=== PATIENT | female | born 1965 | race Caucasian/White ===

== ENCOUNTER 2020-03-02 22:13 | Emergency (ER) | payer MEDICAID, SELFPAY ==
[2020-03-02 22:29] VITALS: BP 164/99; PULSE 91; RESP 16; TEMP 36.5; O2SAT 98
--- NOTE | 2020-03-03 01:23 | ED_ITS ---
HPI - Skin/Abscess/Foreign Bdy General: Chief complaint: Skin/Abscess/Foreign Body Stated complaint: abcess on bottom of foot/ pusy Time Seen by Provider: 03/03/20 01:23 History of Present Illness: HPI narrative: Patient is a 54-year-old female who comes to the ED with lesion on left foot. Patient says a month ago she stepped on something sharp in her yard with her left foot. She says she had some erythema and tenderness to her left foot. Patient says that lasted about 2 weeks and then it all was completely healed and she was having no pain in the left foot. She says last night she started developing tenderness, erythema and warmth in the same area where she injured her foot a month ago. She currently rates the pain in her left foot 6 out of 10. Patient is up-to-date on tetanus shot and says she has no history of MRSA or staph infection. Associated symptoms: Deny chills, fever(s), nausea or vomiting Review of Systems Const: Denies: fever(s), chills or fatigue Eyes: Denies: change in vision or eye discomfort ENMT: Denies: throat pain, odynophagia, nasal discharge or nasal congestion Card: Denies: chest pain, palpitations, edema, swelling of feet/ankles, dyspnea on exertion or orthopnea Resp: Denies: dyspnea, productive cough or non-productive cough GI: Denies: abdominal pain, nausea, vomiting, diarrhea, constipation or hematochezia : Denies: flank pain, dysuria or hematuria Musc: Reports: extremity pain (Left foot pain); Denies: neck pain, back pain or extremity swelling Skin/Breast: Reports: new lesions (Erythema and tenderness on left foot.); Denies: rash Neuro: Denies: headache(s), numbness in extremities or weakness in extremities Physical Exam Const: COMMON NORMALS: no acute distress, patient oriented x3 and alert GENERAL APPEARANCE: cooperative and comfortable HENMT: COMMON NORMALS: normocephalic HEAD & SCALP: normocephalic MOUTH: Normal oral and palatal mucosa present THROAT: posterior oropharynx normal and uvula midline Neck/C-Spine: COMMON NORMALS: supple GENERAL: Yes normal visual inspection Resp: COMMON NORMALS: normal respiratory effort, No retractions, No use of accessory muscles and clear to auscultation bilaterally AUSCULTATION: clear to auscultation bilaterally Cardio: COMMON NORMALS: regular rate, regular rhythm, S1 normal heart sound present, S2 normal heart sound present, No gallops present (Cardio), No clicks present (Cardio), No murmurs present (Cardio) and Peripheral pulses 2+ throug hout RATE: regular rate RHYTHM: regular rhythm HEART SOUNDS: S1 normal heart sound present and S2 normal heart sound present PERIPHERAL PULSES: Peripheral pulses 2+ throughout GI: COMMON NORMALS: Normal to inspection, nondistended, normoactive bowel sounds present, Soft to palpation, non-tender and no masses PALPATION: Yes Soft to palpation : COMMON NORMALS: Yes no CVA tenderness BLADDER/KIDNEY EXAM: Yes no CVA tenderness Back/Pelvis: COMMON NORMALS: no CVA tenderness Extremity: NARRATIVE EXTREMITY EXAM: Patient has erythema, tenderness and warmth on the lateral aspect of left foot. nonfluctuant and indurated appears to be cellulitis. GENERAL: Yes normal exam except as noted Neuro: COMMON NORMALS: patient oriented x3 and moves all extremities SENSORIUM/ORIENTATION: Yes alert Skin: NARRATIVE SKIN EXAM: Patient has erythema, warmth and tenderness on the lateral aspect of the left foot. No purulent drainage. Nonfluctuant and indurated. Lesion on left foot appears to be cellulitis. GENERAL SKIN EXAM: dry skin Course Vital Signs: Vital signs: Vital Signs Temperature 97.7 F 03/02/20 22:29 Pulse Rate 68 03/03/20 01:54 Respiratory Rate 18 03/03/20 01:54 Blood Pressure 164/99 03/02/20 22:29 Pulse Oximetry 98 03/03/20 01:54 MDM - Skin/Abscess/Foreign Bdy MDM Narrative: Medical decision making narrative: Patient is a 54-year-old female comes to the ED with possible skin infection on left foot. Patient says a month ago she stepped on something on the yard and it punctured her skin. Physical exam shows erythema, warmth and tenderness of the skin on the lateral aspect of the left foot. Left foot x-ray showed no acute findings or foreign body seen. Suspected cellulitis. Patient was given a dose of clindamycin while here in the ED and is discharged with a prescription for clindamycin. She was told to take ibuprofen or Tylenol for pain or fevers. Return to ED precautions given and I informed her that this could develop into an abscess and might need to be drained if he continues to get worse he will take antibiotics. Follow-up with PCP 5 to 7 days. Patient understood and agreed with plan. Imaging Data^: Xray Ortho: Attestation: I personally reviewed and interpreted this imaging study as follows: My impression: Left foot x-ray shows no acute findings or foreign body seen. Discharge Plan Discharge Patient Disposition: Home Clinical Impression: Cellulitis Qualifiers: Site of cellulitis: extremity Site of cellulitis of extremity: lower extremity Laterality: left Qualified Code(s): L03.116 - Cellulitis of left lower limb Condition: Stable Prescriptions: New clindamycin HCl 150 mg capsule 300 mg PO QID 7 Days Qty: 56 RF: 0 Discharge Orders: Discharge Order (Routine); Ordered 03/03/20 Ordered By: Manuel Rizo Referrals: Brigitte Briceño FNP [Primary Care Provider] - Discharge Diet: Regular Discharge Activity: Increase activity as tolerated Patient Instructions: Cellulitis (ED) Activity Restrictions/Additional Instructions: Follow-up with medical provider as directed in 5-7 days. Return to ED if after couple days of being on antibiotic symptoms worsen. Take medications as prescribed. Take ibuprofen or Tylenol for pain. Return to the ER or your medical provider if condition worsens. Please read and understand discharge instructions. If any questions, please ask. Coding Level of Care Code ED Associate Professor Of Economics for Reg Tate Exam Comprehensive
[2020-03-03 01:54] VITALS: PULSE 68; RESP 18; O2SAT 98
--- NOTE | 2020-03-03 01:59 | XR_ITS ---
WS: [id number] LEFT FOOT: 3 VIEW(S) TECHNIQUE: AP, oblique and lateral. HISTORY: foot injury COMPARISON: None available. No acute fracture or dislocation. Small erosion along the lateral first metatarsal head. Normal tarsal/metatarsal alignment. Mild soft tissue edema surrounding the foot. XR/XR foot LT min 3V* [id number] IMPRESSION: Soft tissue edema surrounding the foot. No foreign body or acute fracture.
[2020-03-03] MEDS: clindamycin 150 mg Capsule 300 MG PO (02:03)
[2020-03-03] MEDS: HYDROcodone-acetaminophen 7.5-325 mg Tablet 1 TAB PO (02:03)
[2020-03-03 04:14] VITALS: BP 146/88; PULSE 86; RESP 16; O2SAT 96
== END 2020-03-03 04:15 | disposition home or self-care (01) ==
PROVIDERS: Emergency Provider Physician Assistant; PCP Nurse Practitioner
DX: L03.116 Cellulitis of left lower limb (principal)
CPT/HCPCS: 12345; 73630; 99282; 99283

== ENCOUNTER → 2021-03-20 07:50 | Outpatient (BNVA) | payer MEDICAID, SELFPAY | PROVIDERS: PCP Nurse Practitioner; Visit Provider Nurse Practitioner Family | DX: I10 Essential (primary) hypertension (principal) | CPT/HCPCS: 80053; 80061; 84443 ==

== ENCOUNTER → 2021-12-27 15:20 | Outpatient (BNVA) | payer MEDICARE, MEDICAID, SELFPAY | PROVIDERS: PCP Nurse Practitioner; Visit Provider Family Medicine | DX: M54.50 Low back pain, unspecified (principal); M54.30 Sciatica, unspecified side | CPT/HCPCS: 72100 ==

== ENCOUNTER 2023-07-12 18:29 | Emergency (ER) | payer MEDICARE, MEDICAID, SELFPAY ==
[2023-07-12 18:37] VITALS: BP 177/111; PULSE 87; RESP 24; O2SAT 96
--- NOTE | 2023-07-12 18:39 | XRR_ITS ---
PROCEDURE INFORMATION: Exam: XR Chest Exam date and time: 07/12/2023 6:56 PM Age: 57 years old Clinical indication: Other: Hypertensive; Prior surgery; Surgery date: 6+ months; Surgery type: Gb; Additional info: HTN urgency TECHNIQUE: Imaging protocol: Radiologic exam of the chest. Views: 1 view. COMPARISON: No relevant prior studies available. FINDINGS: Lungs: Left upper lobe calcified granuloma. No consolidation. Pleural spaces: Unremarkable. No pleural effusion. No pneumothorax. Heart/Mediastinum: Unremarkable. No cardiomegaly. Bones/joints: Unremarkable. XR/XR chest 1V portable [id number] IMPRESSION: No acute findings.
--- NOTE | 2023-07-12 18:39 | CTR_ITS ---
PROCEDURE INFORMATION: Exam: CT Head Without Contrast Exam date and time: 07/12/2023 6:54 PM Age: 57 years old Clinical indication: Pain; Headache; Patient HX: CEBALLOS with hypertension; Additional info: Headache HTN TECHNIQUE: Imaging protocol: Computed tomography of the head without contrast. Radiation optimization: All CT scans at this facility use at least one of these dose optimization techniques: automated exposure control; mA and/or kV adjustment per patient size (includes targeted exams where dose is matched to clinical indication); or iterative reconstruction. COMPARISON: No relevant prior studies available. RADIATION DOSE METRICS: Total DLP (mGy-cm): 1048.5 FINDINGS: Brain: Mild diffuse white matter disease likely reflecting chronic microvascular ischemic changes. Cerebral ventricles: No ventriculomegaly. Paranasal sinuses: Visualized sinuses are unremarkable. No fluid levels. Mastoid air cells: Visualized mastoid air cells are well aerated. Bones/joints: Unremarkable. No acute fracture. Soft tissues: Unremarkable. CT/CT head wo con* [id number] IMPRESSION: Negative for intracranial hemorrhage or mass effect.
--- NOTE | 2023-07-12 18:40 | ECG_ITS ---
[facility] Test Date: 2023-07-12 Pat Name: Christa Rodriguez Department: Room: Gender: Female Chief Financial Officer: : 1965 Requested By: Isaac Jackson Order Number: [id number] Leighann MD: Christian Mensah M.D. Measurements Intervals [place] Rate: 83 P: 38 HI: 112 QRS: 39 QRSD: 105 T: 44 QT: 368 QTc: 433 Interpretive Statements SINUS RHYTHM WITH SHORT HI INTERVAL POSSIBLE INFERIOR MYOCARDIAL INFARCTION , PROBABLY OLD [30 ms Q WAVE IN II/aVF] No previous ECG available for comparison Electronically Signed On 07-14-2023 7:56:29 CLINICAL LABORATORY SCIENTIST by Christian Mensah M.D. [id number]
[2023-07-12 18:55] LABS: Basophils # 0.1 10^3/uL (0.0-0.1); Basophils % 0.6 %; Eosinophils # 0.1 10^3/uL (0.0-0.8); Eosinophils % 1.2 %; Hematocrit 42.1 % (36-47); Lymphocytes # 2.9 10^3/uL (0.8-4.8); Lymphocytes % 27.5 %; Mean Corpuscular HGB Conc 33.5 g/dL (30-55); Mean Corpuscular Hemoglobin 30.7 pg (27-33); Mean Corpuscular Volume 91.5 fl (85-98); Monocytes # 0.6 10^3/uL (0.2-0.9); Monocytes % 5.8 %; Neutrophils # 6.76 10^3/uL (1.8-7.7); Neutrophils % 64.6 %; Nucleated Red Blood Cells % 0 %; Platelet Count 373 10^3/cmm (157-399); Red Cell Distribution Width 12.3 % (12.1-15.1); White Blood Count 10.47 10^3/uL (3.29-11.43)
[2023-07-12] MEDS: metoprolol tartrate 25 mg Tablet PO (19:23)
[2023-07-12] MEDS: labetalol 5 mg/mL SDV 20mL 10 MG IVP (19:23)
[2023-07-12] MEDS: lisinopril 20 mg Tablet PO (19:23)
[2023-07-12 19:28] LABS: Alanine Aminotransferase 13 U/L (0-33); Albumin Level 4.1 g/dL (3.5-5.2); Alkaline Phosphatase 100 U/L (35-105); Aspartate Amino Transferase 13 U/L (0-32); Blood Urea Nitrogen 10 mg/dL (6-20); Carbon Dioxide 25 mmol/L (22-29); Chloride 108 mmol/L (98-107); Globulin 3.1 g/dL (1.3-4.6); Glomerular Filtration Rate 127.2 mL/min (90-130); Glucose 111 mg/dL (65-115); Magnesium 2.2 mg/dL (1.7-2.3); Osmolality Calculated 298 mOsm/kg (285-295); Sodium 144 mmol/L (136-145); Thyroid Stimulating Hormone 1.51 uIU/mL (0.27-4.20); Total Bilirubin 0.2 mg/dL (0.15-1.2); Total Protein 7.2 g/dL (6.6-8.7)
[2023-07-12 20:07] VITALS: BP 156/99; PULSE 78; RESP 18; O2SAT 96
[2023-07-12 20:11] LABS: Bilirubin Urine Neg (Negative); Blood Urine Neg (Negative); Glucose Urine UA Norm (Normal); Ketones Urine Negative (Negative); Nitrate Urine Negative (Negative); Protein Urine 1+ (Negative); Urine Appearance Clear (CLEAR); Urine Color Colorless (Yellow); pH Urine 7 (5-7)
[2023-07-12 20:12] LABS: Add Urine Microscopic? YES; Leukocyte Esterase Urine Negative (Negative); Urobilinogen Urine Norm (Negative)
--- NOTE | 2023-07-12 20:15 | W.ED.GENADLT ---
HPI - General Adult General: Chief complaint: General Medical Stated complaint: HTN; HEADACHE Time Seen by Provider: 07/12/23 18:32 History of Present Illness: 57-year-old female with a history of hypertension. She presents with a headache. She has significant hypertension when blood pressure was checked. She notes that she takes blood pressure medication, but has not had it in 3 weeks or so. Besides the headache, she has had some numbness and tingling to her bilateral upper and lower extremities. No focal weakness. No language problems or vision problems. Blood pressure is improved on EMS arrival to some degree after 3 sublingual nitroglycerin in succession. Associated symptoms: Reports headache(s); Deny chest pain, confusion, dyspnea, nausea, rash, palpitations or vomiting Review of Systems Const: Denies: fever(s), chills or body aches Eyes: Denies: change in vision Card: Denies: chest pain or palpitations Resp: Denies: dyspnea, productive cough, non-productive cough or wheezing GI: Denies: abdominal pain, nausea, vomiting, diarrhea or hematochezia : Denies: difficulty voiding Skin/Breast: Denies: rash Neuro: Reports: headache(s) and sensory changes; Denies: weakness in extremities, dizziness or confusion PFS ED PFSH: Medical History Bipolar disorder Hypertension Surgical History (Updated 03/20/21 @ 14:00 by Shanelle Rand NP) History of cholecystectomy History of hysterectomy Social History (Updated 03/20/21 @ 13:45 by Rachana Sarmiento LPN) Smoking and tobacco/nicotine status: current every day tobacco/nicotine user (1 ppd) cigarettes Packs smoked per day: 1 Alcohol intake: never Substance/Drug Use: never Physical Exam Const: COMMON NORMALS: no acute distress GENERAL APPEARANCE: cooperative; not ill appearing and not frail appearing HENMT: COMMON NORMALS: normocephalic, atraumatic and Normal external nose present HEAD & SCALP: normocephalic and atraumatic FACE & SINUS: normal facial exam and face symmetric NOSE: Normal external nose present Eye: COMMON NORMALS: Equal, round and reactive pupils present and EOMs intact bilaterally PUPIL: Yes Equal, round and reactive pupils present Neck/C-Spine: GENERAL: Yes trachea midline Chest: CHEST: Yes Symmetrical chest wall rise Resp: COMMON NORMALS: normal respiratory effort, No retractions, No use of accessory muscles and clear to auscultation bilaterally AUSCULTATION: clear to auscultation bilaterally Cardio: COMMON NORMALS: regular rate and regular rhythm RATE: regular rate RHYTHM: regular rhythm GI: COMMON NORMALS: Normal to inspection, nondistended, normoactive bowel sounds present Extremity: COMMON NORMALS: no pedal edema Neuro: CONSTANTIN COMA SCALE: document GCS findings Constantin coma scale eye opening: Spontaneous [place] coma scale verbal response: Orientated [place] coma scale motor response: Obey commands Constantin coma scale total score: 15 SENSORY EXAM: Yes extremities (intact) Psych: COMMON NORMALS: speech normal SPEECH: Yes normal speech Skin: COMMON NORMALS: no rashes or lesions noted GENERAL SKIN EXAM: no rashes or lesions noted Course Vital Signs: Vital signs: Vital Signs Pulse Rate 78 07/12/23 20:07 Respiratory Rate 18 07/12/23 20:07 Blood Pressure 146/86 07/12/23 20:49 Pulse Oximetry 96 07/12/23 20:07 Oxygen Delivery Me thod Room Air 07/12/23 20:[address] [facility] - General Adult Medical Decision Making Blood pressure is under much better control after medication here. She is feeling improved. She will be discharged on metoprolol to add lisinopril if after 2 to 3 days metoprolol alone is not controlling her blood pressure. Laboratories benign. Chest x-ray and head CT are negative. Close outpatient follow-up return for worsening symptoms despite treatment. Lab Data 07/12/23 18:49 07/12/23 18:49 Radiology Impressions Chest X-Ray 07/12/23 18:39 IMPRESSION: No acute findings. Head CT 07/12/23 18:39 IMPRESSION: Negative for intracranial hemorrhage or mass effect. Laboratory Results WBC 10.47 10^3/uL (3.29-11.43) 07/12/23 18:49 RBC 4.60 10^6/uL (3.85-5.65) 07/12/23 18:49 Hgb 14.10 g/dL (11.27-16.99) 07/12/23 18:49 Hct 42.1 % (36-47) 07/12/23 18:49 MCV 91.5 fl (85-98) 07/12/23 18:49 MCH 30.7 pg (27-33) 07/12/23 18:49 MCHC 33.5 g/dL (30-55) 07/12/23 18:49 RDW 12.3 % (12.1-15.1) 07/12/23 18:49 Plt Count 373 10^3/cmm (157-399) 07/12/23 18:49 MPV 9.0 fL (7.4-10.4) 07/12/23 18:49 Neut % (Auto) 64.6 % 07/12/23 18:49 Lymph % (Auto) 27.5 % 07/12/23 18:49 [place] % (Auto) 5.8 % 07/12/23 18:49 Eos % (Auto) 1.2 % 07/12/23 18:49 Baso % (Auto) 0.6 % 07/12/23 18:49 Neut # (Auto) 6.76 10^3/uL (1.8-7.7) 07/12/23 18:49 Lymph # (Auto) 2.9 10^3/uL (0.8-4.8) 07/12/23 18:49 [place] # (Auto) 0.6 10^3/uL (0.2-0.9) 07/12/23 18:49 Eos # (Auto) 0.1 10^3/uL (0.0-0.8) 07/12/23 18:49 Baso # (Auto) 0.1 10^3/uL (0.0-0.1) 07/12/23 18:49 Nucleated RBC % (auto) 0 % 07/12/23 18:49 Nucleated RBCs # 0.0 /100WBC 07/12/23 18:49 Sodium 144 mmol/L (136-145) 07/12/23 18:49 Potassium 4.0 mmol/L (3.5-5.1) 07/12/23 18:49 Chloride 108 mmol/L (98-107) H 07/12/23 18:49 Carbon Dioxide 25 mmol/L (22-29) 07/12/23 18:49 Anion Gap 15.0 (5-19) 07/12/23 18:49 BUN 10 mg/dL (6-20) 07/12/23 18:49 Creatinine 0.5 mg/dL (0.5-0.9) 07/12/23 18:49 GFR Calculation 127.2 mL/min (90-130) 07/12/23 18:49 Glucose 111 mg/dL (65-115) 07/12/23 18:49 Calculated Osmolality 298 mOsm/kg (285-295) H 07/12/23 18:49 Calcium 10.0 mg/dL (8.5-10.5) 07/12/23 18:49 Magnesium 2.2 mg/dL (1.7-2.3) 07/12/23 18:49 Total Bilirubin 0.2 mg/dL (0.15-1.2) 07/12/23 18:49 AST 13 U/L (0-32) 07/12/23 18:49 ALT 13 U/L (0-33) 07/12/23 18:49 Alkaline Phosphatase 100 U/L (35-105) 07/12/23 18:49 Total Protein 7.2 g/dL (6.6-8.7) 07/12/23 18:49 Albumin 4.1 g/dL (3.5-5.2) 07/12/23 18:49 Globulin 3.1 g/dL (1.3-4.6) 07/12/23 18:49 TSH 1.51 uIU/mL (0.27-4.20) 07/12/23 18:49 Urine Color Colorless (Yellow) 07/12/23 19:35 Urine Appearance Clear (CLEAR) 07/12/23 19:35 Urine pH 7 (5-7) 07/12/23 19:35 Ur Specific [place] 1.010 (1.005-1.030) 07/12/23 19:35 Urine Protein 1+ (Negative) H 07/12/23 19:35 Urine Glucose (UA) Norm (Normal) 07/12/23 19:35 Urine Ketones Negative (Negative) 07/12/23 19:35 Urine Blood Neg (Negative) 07/12/23 19:35 Urine Nitrate Negative (Negative) 07/12/23 19:35 Urine Bilirubin Neg (Negative) 07/12/23 19:35 Urine Urobilinogen Norm mg/dL (Negative) 07/12/23 19:35 Ur Leukocyte Esterase Negative (Negative) 07/12/23 19:35 Urine RBC 0-4 /hpf (0-2) H 07/12/23 19:35 Urine WBC 0-4 /hpf (0-5) H 07/12/23 19:35 Ur Squamous Epith Cells 0-4 /hpf (0-5) H 07/12/23 19:35 Amorphous Sediment Not Reportable 07/12/23 19:35 Urine Bacteria Trace /hpf (NONE) 07/12/23 19:35 Urine Mucus Trace /hpf 07/12/23 19:35 All radiology interpretation(s) finalized by discharge Discharge Plan Discharge Patient Disposition: Home Clinical Impression: Hypertension Condition: Stable Prescriptions: New metoprolol tartrate 25 mg tablet 25 mg PO BID Qty: 60 0RF lisinopril 10 mg tablet 10 mg PO DAILY Qty: 30 0RF No Action cyclobenzaprine 10 mg tablet 10 mg PO TID PRN (Reason: muscle spasm) Qty: 20 0RF ibuprofen 800 mg tablet 800 mg PO Q8H 5 Days Qty: 15 0RF lisinopril 20 mg tablet 20 mg PO DAILY Qty: 30 0RF Discharge Orders: Discharge ED (Routine); Ordered 07/12/23 Ordered By: Isaac Gautam Referrals: Brigitte Briceño FNP [Primary Care Provider] - Patient Instructions: Opioid Safety, Pain Management Activity Restrictions/Additional Instructions: Take your blood pressures twice daily. Start your metoprolol twice daily. If blood pressures are not controlled, less than 140/90 after 2 to 3 days, you may begin lisinopril as well. See your doctor next week. Show them a log of your blood pressure medication. Coding Level of Care Code ED Financial Services Professional for Reg Tate
[2023-07-12 20:23] LABS: Bacteria Urine TRACE /hpf; Mucus Urine TRACE /hpf; RBC Urine 0-4 /hpf (0-2); Squamous Epithelial Cell Urine 0-4 /hpf (0-5); WBC Urine 0-4 /hpf (0-5)
[2023-07-12 20:49] VITALS: BP 146/86
== END 2023-07-12 20:50 | disposition home or self-care (01) ==
PROVIDERS: Emergency Provider Emergency Medicine; PCP Nurse Practitioner
DX: I10 Essential (primary) hypertension (principal); Z72.0 Tobacco use
CPT/HCPCS: 36415; 70450; 71045; 80053; 81001; 83735; 84443; 85025; 93005; 96374; 99285; J3490

== ENCOUNTER 2023-10-08 13:14 | Outpatient (CLI) | payer MEDICARE, MEDICAID, SELFPAY ==
--- NOTE | 2023-10-08 13:20 | MM_ITS ---
WS: [id number] BILATERAL 3D TOMOSYNTHESIS DIGITAL SCREENING MAMMOGRAPHY WITH CAD CLINICAL INFORMATION: SCREENING HISTORY: Screening mammogram. No current complaints. COMPARISON: 2014 TECHNIQUE: Bilateral CC and MLO views. FINDINGS: Scattered fibroglandular densities bilaterally. Dense nodular breast tissue subareolar RIGHT breast. Recommend spot compression views and ultrasound for further evaluation. Incidental punctate calcifica tion RIGHT breast. Vascular calcifications. Unremarkable LEFT breast. IMPRESSION: MM/[place] [id number] BI-RADS: 0-Incomplete: Need additional imaging evaluation FOLLOW UP: Need Additional Imaging RIGHT breast diagnostic mammography and ultrasound in further evaluation.
== END 2023-10-08 13:15 | disposition home or self-care (01) ==
LOC: RAD 13:14
PROVIDERS: PCP Nurse Practitioner; Visit Provider Internal Medicine
DX: Z12.31 Encounter for screening mammogram for malignant neoplasm of breast (principal); R92.323 Mammographic fibroglandular density, bilateral breasts
CPT/HCPCS: 77063; 77067

== ENCOUNTER 2023-10-18 09:16 | Emergency (ER) | payer MEDICARE, MEDICAID, SELFPAY ==
[2023-10-18 09:17] VITALS: BP 127/81; PULSE 70; RESP 17; TEMP 36.7; O2SAT 100
[2023-10-18 09:23] VITALS: BP 127/81; PULSE 72; RESP 16; O2SAT 100
--- NOTE | 2023-10-18 09:24 | CTR_ITS ---
PROCEDURE INFORMATION: Exam: CT Head Without Contrast Exam date and time: 10/18/2023 9:28 AM Age: 57 years old Clinical indication: Numbness / parasthesia; Left; Additional info: Left arm numbness TECHNIQUE: Imaging protocol: Computed tomography of the head without contrast. Radiation optimization: All CT scans at this facility use at least one of these dose optimization techniques: automated exposure control; mA and/or kV adjustment per patient size (includes targeted exams where dose is matched to clinical indication); or iterative reconstruction. COMPARISON: CT head wo con* [id number] 07/12/2023 6:54 PM RADIATION DOSE METRICS: Total DLP (mGy-cm): 1070.68 FINDINGS: Brain: No acute intracranial hemorrhage or abnormal intracranial mass effect is identified. Chronic appearing small-vessel ischemic changes are present within cerebral white matter, similar to 07/12/2023. No subdural collections are seen. Incidental note of atherosclerotic calcifications involving carotid and vertebral arteries at the skull base. Cerebral ventricles: Ventricles are stable size and position compared to 07/12/2023. No midline shift. Paranasal sinuses: Visualized portions of paranasal sinuses are well aerated. Mastoid air cells: Visualized portions of mastoid sinuses are not opacified. Bones/joints: No obvious fracture or aggressive destructive lesion involving the cranium. Soft tissues: Other than as stated above, no obvious acute abnormality. CT/CT head wo con* [id number] IMPRESSION: No acute intracranial hemorrhage or mass effect.
--- NOTE | 2023-10-18 09:24 | ECG_ITS ---
[facility] Test Date: 2023-10-18 Pat Name: Christa Rodriguez Department: Room: Gender: Female Insulation Worker Apprentice: : 1965 Requested By: Chong Hall Order Number: [id number] Leighann MD: Apolinar Michael M.D. Measurements Intervals [place] Rate: 64 P: 37 MS: 152 QRS: 39 QRSD: 107 T: 60 QT: 381 QTc: 394 Interpretive Statements SINUS RHYTHM MODERATE ST DEPRESSION [0.05+ mV ST DEPRESSION] Compared to ECG 07/12/2023 18:49:59 ST (T wave) deviation now present Short MS interval no longer present Myocardial infarct finding no longer present Electronically Signed On 10-19-2023 8:10:04 CDT by Apolinar Michael M.D. [id number]
--- NOTE | 2023-10-18 09:24 | W.ED.GENADLT ---
HPI - General Adult General: Chief complaint: General Medical Stated complaint: LEFT ARM NUMBNESS Time Seen by Provider: 10/18/23 09:23 [facility] ED PFSH: Medical History Bipolar disorder Hypertension Surgical History (Updated 03/20/21 @ 14:00 by Shanelle Rand NP) History of cholecystectomy History of hysterectomy Social History (Updated 03/20/21 @ 13:45 by Rachana Sarmiento LPN) Smoking and tobacco/nicotine status: current every day tobacco/nicotine user (1 ppd) cigarettes Packs smoked per day: 1 Alcohol intake: never Substance/Drug Use: never Course Vital Signs: Vital signs: Vital Signs Temperature 98.0 F 10/18/23 09:17 Pulse Rate 70 10/18/23 09:17 Respiratory Rate 17 10/18/23 09:17 Blood Pressure 127/81 10/18/23 09:17 Pulse Oximetry 100 10/18/23 09:17 Oxygen Delivery Me thod Room Air 10/18/23 09:17 Discharge Plan Discharge Condition: Stable Prescriptions: No Action cyclobenzaprine 10 mg tablet 10 mg PO TID PRN (Reason: muscle spasm) Qty: 20 0RF ibuprofen 800 mg tablet 800 mg PO Q8H 5 Days Qty: 15 0RF lisinopril 20 mg tablet 20 mg PO DAILY Qty: 30 0RF metoprolol tartrate 25 mg tablet 25 mg PO BID Qty: 60 0RF lisinopril 10 mg tablet 10 mg PO DAILY Qty: 30 0RF Referrals: Brigitte Briceño FNP [Primary Care Provider] - Coding Level of Care Code ED Certified Nursing Attendant for Reg Ttae
--- NOTE | 2023-10-18 10:02 | XRR_ITS ---
PROCEDURE INFORMATION: Exam: XR Chest Exam date and time: 10/18/2023 10:08 AM Age: 57 years old Clinical indication: Other: Paresthesia; Patient HX: Left arm was having involuntary movement TECHNIQUE: Imaging protocol: Radiologic exam of the chest. Views: 1 view. COMPARISON: CR (CHEST, ) 07/12/2023 6:56 PM FINDINGS: Lungs: No acute infiltrate identified. Very minimal chronic basilar scarring adjacent to the diaphragm, similar to 07/12/2023 . Tiny granulomatous calcification projects over the left midlung zone. Pleural spaces: No significant pleural fluid. No pneumothorax detected. Heart/Mediastinum: Heart size is stable compared to the prior exam. No pulmonary vascular congestion. Bones/joints: Bones appear diffusely osteopenic. XR/XR chest 1V portable [id number] IMPRESSION: No acute cardiopulmonary abnormality detected on AP portable chest radiograph. .
--- NOTE | 2023-10-18 10:06 | ED_ITS ---
HPI - General Adult General: Chief complaint: General Medical Stated complaint: LEFT ARM NUMBNESS Time Seen by Provider: 10/18/23 09:23 Source: patient Mode of arrival: ambulatory Limitations: no limitations History of Present Illness: 57-year-old female who is here from [facility] states she woke up this morning and her left arm went limp but it lasted a few minutes and she is now regaining full function. States she has had this happen before states she has a pinched nerve in her shoulder she denies any pain she has no symptoms currently denies any slurred speech Associated symptoms: Deny chest pain, dyspnea, headache(s), nausea, rash or vomiting Review of Systems Const: Denies: fever(s), chills, body aches or change in appetite Eyes: Denies: blurry vision or eye discomfort ENMT: Denies: throat pain or dental pain Card: Denies: chest pain Resp: Denies: dyspnea GI: Denies: abdominal pain, nausea, vomiting or diarrhea : Denies: dysuria Musc: Denies: neck pain or back pain Skin/Breast: Denies: rash Neuro: Denies: headache(s) PFSH ED PFSH: Medical History Bipolar disorder Hypertension Surgical History History of cholecystectomy History of hysterectomy Social History (Updated 03/20/21 @ 13:45 by Rachana Sarmiento LPN) Smoking and tobacco/nicotine status: current every day tobacco/nicotine user (1 ppd) cigarettes Packs smoked per day: 1 Alcohol intake: never Substance/Drug Use: never Physical Exam Const: COMMON NORMALS: no acute distress, patient oriented x3 and healthy appearing HENMT: COMMON NORMALS: normocephalic and atraumatic HEAD & SCALP: normocephalic and atraumatic Neck/C-Spine: COMMON NORMALS: full ROM and supple Chest: COMMONS NORMALS: normal inspection of the chest Resp: COMMON NORMALS: normal respiratory effort Cardio: COMMON NORMALS: regular rate, regular rhythm and No murmurs present ( Cardio) RATE: regular rate RHYTHM: regular rhythm Extremity: COMMON NORMALS: normal to inspection and full ROM Neuro: COMMON NORMALS: patient oriented x3, moves all extremities and no focal motor deficits CRANIAL NERVES: Yes CN normal except as noted SPEECH: speech normal GAIT: Yes Normal gait present MOTOR EXAM: 5/5 motor strength present throughout Psych: COMMON NORMALS: mental status grossly normal, Normal thought process present and cooperative THOUGHT PROCESS: Normal thought process present Skin: COMMON NORMALS: no rashes or lesions noted and no wounds GENERAL SKIN EXAM: no rashes or lesions noted Course Vital Signs: Vital signs: Vital Signs Temperature 98.0 F 10/18/23 09:17 Pulse Rate 72 10/18/23 09:23 Respiratory Rate 16 10/18/23 09:23 Blood Pressure 127/81 10/18/23 09:23 Pulse Oximetry 100 10/18/23 09:23 Oxygen Delivery Me thod Room Air 10/18/23 09:23 [facility] - General Adult Medical Decision Making Patient presents with left arm weakness that lasted just a few minutes she had a history of pinched nerve she has no signs of stroke here head CT is normal patient stable for discharge follow-up PCP return if worsening. Medical Records I reviewed the patient's medical records. Lab Data Radiology Impressions Head CT 10/18/23 09:24 IMPRESSION: No acute intracranial hemorrhage or mass effect. All radiology interpretation(s) finalized by discharge EKG Data EKG 1: I personally reviewed and interpreted this EKG as follows: EKG interpretation date: 10/18/23 EKG interpretation time: 09:57 Interpretation: nsr hr [address] elevation qrs 107 qtc 390 Computer generated interpretation: Head CT 10/18/23 09:24 IMPRESSION: No acute intracranial hemorrhage or mass effect. Discharge Plan Discharge Patient Disposition: Home Clinical Impression: Left arm weakness Condition: Stable Prescriptions: No Action cyclobenzaprine 10 mg tablet 10 mg PO TID PRN (Reason: muscle spasm) Qty: 20 0RF ibuprofen 800 mg tablet 800 mg PO Q8H 5 Days Qty: 15 0RF lisinopril 20 mg tablet 20 mg PO DAILY Qty: 30 0RF metoprolol tartrate 25 mg tablet 25 mg PO BID Qty: 60 0RF lisinopril 10 mg tablet 10 mg PO DAILY Qty: 30 0RF Discharge Orders: Discharge ED (Routine); Ordered 10/18/23 Ordered By: Mikal Trujillo Referrals: Brigitte Briceño FNP [Primary Care Provider] - Discharge Diet: Advance as tolerated Discharge Activity: Resume usual activity Patient Instructions: Paresthesia (ED) Coding Level of Care Code ED Senior Clerk for Reg Tate
[2023-10-18 10:37] VITALS: BP 127/81; PULSE 72; RESP 16; TEMP 36.7; O2SAT 100
== END 2023-10-18 10:37 | disposition home or self-care (01) ==
PROVIDERS: Emergency Provider Emergency Medicine; PCP Nurse Practitioner
DX: R53.1 Weakness (principal); I10 Essential (primary) hypertension; F17.210 Nicotine dependence, cigarettes, uncomplicated
CPT/HCPCS: 70450; 71045; 93005; 99284

== ENCOUNTER 2023-10-28 10:32 | Emergency (ER) | payer MEDICARE, MEDICAID, SELFPAY ==
[2023-10-28] VITALS (9 sets, daily range): BP systolic 130–185; BP diastolic 80–110; PULSE 67–78; RESP 16–17; O2SAT 95–97
--- NOTE | 2023-10-28 10:51 | CT_ITS ---
WS: [id number] CT HEAD NONCONTRAST HISTORY: STROKE LIKE SYMPTOMS TECHNIQUE: Contiguous axial imaging performed through the brain in 2.5 mm imaging. Bone and soft tiss ue windows. Sagittal and coronal reformats reviewed. All CT scans at [facility] use at least one of these dose optimization techniques: automated exposure control; mA and/or kV adjustment per pa tient size (includes targeted exams where dose is matched to clinical indication); or iterative recon struction. DLP: 1070.68 mGy COMPARISON: 10/18/2023 No acute intracranial hemorrhage, midline shift or mass effect. Mild atrophy and small vessel ischemic disease. Similar to the prior exam. No prior infarct. Tiny lac unar infarct RIGHT caudate head and basal ganglia. Ventricles: Normal size with no hydrocephalus. No inferior displacement of the cerebellar tonsils. Paranasal sinuses: As visualized are clear. Mastoid air cells: Well pneumatized. Calvarium and scalp: Skull is intact with no soft tissue edema or swelling. CT/CT head thrombolytic [id number] IMPRESSION: 1. No acute intracranial hemorrhage or edema. 2. Mild atrophy and small vessel ischemic disease. Notified Chong Deutsch DO at 10/28/2023 10:56 AM.
--- NOTE | 2023-10-28 10:56 | ED_ITS ---
HPI - Neuro Symptoms/Deficit 2 General: Chief Complaint: Neuro Symptoms/Deficit Stated Complaint: slurred speech, blacking out Time Seen by Provider: 10/28/23 10:50 Source: patient Mode of arrival: ambulatory History of Present Illness: 57-year-old female who presents to the e mergency room with complaints of left- sided weakness. She states symptoms began about 2 hours ago while she was playing a beanbag game. During the same time she had difficulty with word pronunciation. It is kind of waxed and waned since then on arrival here she states her word enunciation seems normal initially but when I got in the room she said it felt like it was getting worse again she also mentioned that she has a pinched nerve in her neck. 10 days ago she was seen CT of the head was negative is thought to be from a pinched nerve in her neck and she was discharged home she does not routinely take any antiplatelet therapy. She does have a history of hypertension and is currently on antihypertensives. She denies any chest pain. When initially talked to her about the weakness that she said she felt weak on both the left and the right but was worse on the left than the right. Onset (ago): minute(s) Location: speech and left face Associated symptoms: Deny chest pain Review of Systems 2 Const: Denies: fever(s) or chills Card: Denies: chest pain Resp: Denies: dyspnea GI: Denies: abdominal pain : Denies: dysuria, urinary frequency or urinary urgency Musc: Denies: neck pain or back pain Skin/Breast: Denies: rash PFS ED 2 PFSH: Medical History Bipolar disorder Hypertension Surgical History History of cholecystectomy History of hysterectomy Social History (Updated 03/20/21 @ 13:45 by Rachana Sarmiento LPN) Smoking and tobacco/nicotine status: current every day tobacco/nicotine user (1 ppd) cigarettes Packs smoked per day: 1 Alcohol intake: never Substance/Drug Use: never NIH stroke score 2 NIHSS: Level Of Consciousness - 1a: 0 Level Of Consciousness Questions - 1b: Both Correct Level Of Consciousness Commands - 1c: Both Correct Best Gaze - 2: Normal Visual Blanc[place] - 3: No Visual Loss Facial Palsy - 4: N ormal Motor Arm Right - 5: No Drift Motor Arm Left - 5: Drift Motor Leg Right - 6: No Drift Motor Leg Left - 6: No Drift Limb Ataxia - 7: Absent Sensory - 8: Mild To Moderate Loss Best Language - 9: No Aphasia D ysarthia - 10: Mild/Moderate Dysarthia Extinction And Inattention - 11: 0 Score: Total Score: 3 Physical Exam 2 Const: COMMON NORMALS: no acute distress GENERAL APPEARANCE: cooperative and comfortable ORIENTATION/CONSCIOUSNESS: Yes awake, Yes oriented to person, Yes oriented to place and Yes oriented to time HENMT: COMMON NORMALS: normocephalic, atraumatic and hearing grossly normal bilaterally HEAD & SCALP: normocephalic and atraumatic Resp: COMMON NORMALS: normal respiratory effort, No retractions, No use of accessory muscles and clear to auscultation bilaterally AUSCULTATION: clear to auscultation bilaterally Cardio: COMMON NORMALS: regular rate, regular rhythm and No murmurs present (Cardio) RATE: regular rate RHYTHM: regular rhythm GI: COMMON NORMALS: Soft to palpation and No hepatosplenomegaly present A USCULTATION: Yes normoactive bowel sounds PALPATION: Yes Soft to palpation, No Tenderness to palpation present (GI), No Guarding due to palpation present (GI) and Yes No hepatosplenomegaly present Extremity: COMMON NORMALS: normal to inspection, capillary refill normal, no clubbing, cyanosis or edema, no calf tenderness and no pedal edema Neuro: SENSORIUM/ORIENTATION: Yes oriented to person, Yes oriented to place and Yes oriented to time Skin: COMMON NORMALS: no rashes or lesions noted GENERAL SKIN EXAM: no rashes or lesions noted Course 2 Vital Signs: Vital signs: Vital Signs Pulse Rate 72 10/28/23 13:52 Respiratory Rate 17 10/28/23 13:18 Blood Pressure 147/95 10/28/23 13:52 Pulse Oximetry 95 10/28/23 13:52 Oxygen Delivery Me thod Room Air 10/28/23 13:35 MDM - Neuro Symptoms/Deficit Medical Decision Making Patient's scores a NIH of 3 but is very burt on the scoring. She is reporting weakness bilaterally but when I test her she only has a very very slight arm drift she has minimal difficulty with word enunciation and reports a very slight distinction between the left and the right on the hands and feet to sharp touch. I reviewed with Dr. Wang. We both agree at this point that she is not a good candidate for intervention we will get a CTA of her head and neck. Recheck after conversation w Dr. Wang - speech issues have completely resolved per pt. discussed with her she initially scored a 3 but is improving already and we do not recommend thrombotics at this time. Lab Data 10/28/23 11:00 10/28/23 11:[address] 10/28/23 10:51 IMPRESSION: 1. No acute intracranial hemorrhage or edema. 2. Mild atrophy and small vessel ischemic disease. Notified Chong Deutsch DO at 10/28/2023 10:56 AM. Head/Neck CTA 10/28/23 10:57 IMPRESSION: No acute intracranial large vessel occlusion. IMPRESSION: Atheromatous disease noted in the proximal internal carotid arteries bilaterally. Subtotal short-segment occlusion of the proximal left internal carotid artery. 70% stenosis measured in the proximal right internal carotid artery. REFERENCES: NASCET CRITERIA. The degree of stenosis in the cervical segment of the internal carotid artery is based on NASCET criteria. Normal is no stenosis. Mild is less than 50% stenosis. Moderate is 50-69% stenosis. Severe is 70% to 99% stenosis. Total occlusion is no detectable patent lumen. Laboratory Results WBC 9.15 10^3/uL (3.29-11.43) 10/28/23 11:00 RBC 4.76 10^6/uL (3.85-5.65) 10/28/23 11:00 Hgb 14.40 g/dL (11.27-16.99) 10/28/23 11:00 Hct 43.5 % (36-47) 10/28/23 11:00 MCV 91.4 fl (85-98) 10/28/23 11:00 MCH 30.3 pg (27-33) 10/28/23 11:00 MCHC 33.1 g/dL (30-55) 10/28/23 11:00 RDW 12.2 % (12.1-15.1) 10/28/23 11:00 Plt Count 337 10^3/cmm (157-399) 10/28/23 11:00 MPV 9.2 fL (7.4-10.4) 10/28/23 11:00 Neut % (Auto) 55.0 % 10/28/23 11:00 Lymph % (Auto) 33.6 % 10/28/23 11:00 Mcleod % (Auto) 7.7 % 10/28/23 11:00 Eos % (Auto) 2.4 % 10/28/23 11:00 Baso % (Auto) 0.9 % 10/28/23 11:00 Neut # (Auto) 5.04 10^3/uL (1.8-7.7) 10/28/23 11:00 Lymph # (Auto) 3.1 10^3/uL (0.8-4.8) 10/28/23 11:00 Mcleod # (Auto) 0.7 10^3/uL (0.2-0.9) 10/28/23 11:00 Eos # (Auto) 0.2 10^3/uL (0.0-0.8) 10/28/23 11:00 Baso # (Auto) 0.1 10^3/uL (0.0-0.1) 10/28/23 11:00 Nucleated RBC % (auto) 0 % 10/28/23 11:00 Nucleated RBCs # 0.0 /100WBC 10/28/23 11:00 PT 13.50 SECONDS (12.1-14.9) 10/28/23 11:00 INR 1.00 (0.8-1.2) 10/28/23 11:00 APTT 31.6 SECONDS (23.9-36.7) 10/28/23 11:00 Sodium 137 mmol/L (136-145) 10/28/23 11:00 Potassium 4.3 mmol/L (3.5-5.1) 10/28/23 11:00 Chloride 105 mmol/L (98-107) 10/28/23 11:00 Carbon Dioxide 22 mmol/L (22-29) 10/28/23 11:00 Anion Gap 14.3 (5-19) 10/28/23 11:00 BUN 15 mg/dL (6-20) 10/28/23 11:00 Creatinine 0.8 mg/dL (0.5-0.9) 10/28/23 11:00 GFR Calculation 73.9 mL/min (90-130) L 10/28/23 11:00 Glucose 87 mg/dL (65-115) 10/28/23 11:00 POC Glucose 88 mg/dL (70-110) 10/28/23 11:03 Calculated Osmolality 284 mOsm/kg (285-295) L 10/28/23 11:00 Calcium 10.5 mg/dL (8.5-10.5) 10/28/23 11:00 Total Bilirubin 0.2 mg/dL (0.15-1.2) 10/28/23 11:00 AST 14 U/L (0-32) 10/28/23 11:00 ALT 13 U/L (0-33) 10/28/23 11:00 Alkaline Phosphatase 135 U/L (35-105) H 10/28/23 11:00 Total Protein 7.8 g/dL (6.6-8.7) 10/28/23 11:00 Albumin 4.5 g/dL (3.5-5.2) 10/28/23 11:00 Globulin 3.3 g/dL (1.3-4.6) 10/28/23 11:00 Urine Color Light yellow (Yellow) 10/28/23 12:10 Urine Appearance Clear (CLEAR) 10/28/23 12:10 Urine pH 6 (5-7) 10/28/23 12:10 Ur Specific [place] 1.005 (1.005-1.030) 10/28/23 12:10 Urine Protein Neg (Negative) 10/28/23 12:10 Urine Glucose (UA) Norm (Normal) 10/28/23 12:10 Urine Ketones Negative (Negative) 10/28/23 12:10 Urine Blood Neg (Negative) 10/28/23 12:10 Urine Nitrate Negative (Negative) 10/28/23 12:10 Urine Bilirubin Neg (Negative) 10/28/23 12:10 Urine Urobilinogen Norm mg/dL (Negative) 10/28/23 12:10 Ur Leukocyte Esterase Negative (Negative) 10/28/23 12:10 Urine Opiates Screen Negative ng/mL (Negative) 10/28/23 12:10 Ur Barbiturates Screen Negative ng/mL (Negative) 10/28/23 12:10 Ur Phencyclidine Scrn Negative ng/mL (Negative) 10/28/23 12:10 Ur Amphetamines Screen Negative ng/mL (Negative) 10/28/23 12:10 U Benzodiazepines Scrn Negative ng/mL (Negative) 10/28/23 12:10 Urine Cocaine Screen Negative ng/mL (Negative) 10/28/23 12:10 U Marijuana (THC) Screen Negative ng/mL (Negative) 10/28/23 12:10 All radiology interpretation(s) finalized by discharge Discharge Plan Discharge Patient Disposition: Home Clinical Impression: Transient cerebral ischemia Condition: Stable Prescriptions: New aspirin 81 mg tablet,delayed release (DR/EC) 81 mg PO DAILY Qty: 30 0RF clopidogrel 75 mg tablet 75 mg PO DAILY Qty: 30 0RF atorvastatin 40 mg tablet 40 mg PO DAILY Qty: 30 0RF No Action cyclobenzaprine 10 mg tablet 10 mg PO TID PRN (Reason: muscle spasm) Qty: 20 0RF ibuprofen 800 mg tablet 800 mg PO Q8H 5 Days Qty: 15 0RF lisinopril 20 mg tablet 20 mg PO DAILY Qty: 30 0RF metoprolol tartrate 25 mg tablet 25 mg PO BID Qty: 60 0RF lisinopril 10 mg tablet 10 mg PO DAILY Qty: 30 0RF Discharge Orders: Discharge ED (Routine); Ordered 10/28/23 Ordered By: Chong Deutsch Referrals: Mario Anguiano MD [Primary Care Provider] - Discharge Diet: Usual diet Discharge Activity: Increase activity as tolerated Patient Instructions: Opioid Safety, Pain Management Activity Restrictions/Additional Instructions: Thank you for choosing [facility] for your healthcare needs today. Please realize this is an emergency room and that we are providing you with a medical screening exam and this may not be complete and all inclusive of all the testing and or work up that you may need to determine your ailment or severity of your illness. It is very important that you follow up as instructed or that you return to the Emergency Department should you have concerns or if your condition changes or worsens in any way. You were seen today after a TIA. CTs of your head CT of the head and neck were all normal we reviewed your case we do not recommend thrombolytics at this point. Since all of your symptoms have resolved we will discharge you home recommend that you start Plavix and aspirin as well as atorvastatin will make arrangements for outpatient evaluation and follow-up with neurology. Coding Level of Care Code ED Silo Operator for Reg Tate
--- NOTE | 2023-10-28 10:57 | ECG_ITS ---
[facility] Test Date: 2023-10-28 Pat Name: Christa Rodriguez Department: Room: Gender: Female Full Stack Python Developer: : 1965 Requested By: Chong Hall Order Number: [id number] Leighann MD: Christian Mensah M.D. Measurements Intervals [place] Rate: 70 P: 69 WI: 159 QRS: 60 QRSD: 114 T: 78 QT: 408 QTc: 443 Interpretive Statements SINUS RHYTHM MODERATE INTRAVENTRICULAR CONDUCTION DELAY [110+ ms QRS DURATION] MINIMAL ST DEPRESSION [0.025+ mV ST DEPRESSION] Compared to ECG 10/18/2023 09:57:52 Intraventricular conduction delay now present ST (T wave) deviation still present Electronically Signed On 10-28-2023 17:18:16 CDT by Christian Mensah M.D. [id number]
--- NOTE | 2023-10-28 10:57 | CTR_ITS ---
PROCEDURE INFORMATION: Exam: CTA Head With Contrast, Arteriography Exam date and time: 10/28/2023 11:11 AM Age: 57 years old Clinical indication: Speech disturbance; Additional info: Cva nih 2 TECHNIQUE: Imaging protocol: Computed tomographic angiography of the head with contrast. Exam focused on the arteries. 3D rendering (Not supervised by radiologist): MIP and/or 3D reconstructed images were created by the technologist. Radiation optimization: All CT scans at this facility use at least one of these dose optimization techniques: automated exposure control; mA and/or kV adjustment per patient size (includes targeted exams where dose is matched to clinical indication); or iterative reconstruction. Contrast material: OMNI 350; Contrast volume: 100 ml; Contrast route: INTRAVENOUS (IV); COMPARISON: CT head thrombolytic [id number] 10/28/2023 10:47 AM RADIATION DOSE METRICS: Total DLP (mGy-cm): 441.74 FINDINGS: ANTERIOR CIRCULATION: Right internal carotid artery: Intracranial segment is patent with no significant stenosis. No aneurysm. Right middle cerebral artery: No occlusion or significant stenosis. No aneurysm. Right anterior cerebral artery: No occlusion or significant stenosis. No aneurysm. Left internal carotid artery: Intracranial segment is patent with no significant stenosis. No aneurysm. Left middle cerebral artery: No occlusion or significant stenosis. No aneurysm. Left anterior cerebral artery: No occlusion or significant stenosis. No aneurysm. POSTERIOR CIRCULATION: Right vertebral artery: No occlusion or significant stenosis. No aneurysm. Left vertebral artery: No occlusion or significant stenosis. No aneurysm. Basilar artery: No occlusion or significant stenosis. No aneurysm. Right posterior cerebral artery: No occlusion or significant stenosis. No aneurysm. Left posterior cerebral artery: No occlusion or significant stenosis. No aneurysm. Brain: No definite mass, mass effect, or midline shift. Cerebral ventricles: No ventriculomegaly. Bones/joints: Unremarkable. No acute fracture. Soft tissues: Unremarkable. PROCEDURE INFORMATION: Exam: CTA Neck With Contrast Exam date and time: 10/28/2023 11:11 AM Age: 57 years old Clinical indication: Speech disturbance; Additional info: Cva nih 2 TECHNIQUE: Imaging protocol: Computed tomographic angiography of the neck with contrast. Exam focused on the cervical segments of the vasculature. 3D rendering (Not supervised by radiologist): MIP and/or 3D reconstructed images were created by the technologist. Radiation optimization: All CT scans at this facility use at least one of these dose optimization techniques: automated exposure control; mA and/or kV adjustment per patient size (includes targeted exams where dose is matched to clinical indication); or iterative reconstruction. Contrast material: OMNI 350; Contrast volume: 100 ml; Contrast route: INTRAVENOUS (IV); COMPARISON: CT head thrombolytic [id number] 10/28/2023 10:47 AM RADIATION DOSE METRICS: Total DLP (mGy-cm): 441.74 FINDINGS: Right common carotid artery: No stenosis. No dissection or occlusion. Right internal carotid artery: There is soft atheromatous plaque noted in the proximal right internal carotid artery with a minimum transverse luminal dimension measuring 1.8 mm versus the distal internal carotid artery measurements 6.0 mm for calculated 70% stenosis. The right internal carotid artery takes a retropharyngeal course. Right external carotid artery: No occlusion or stenosis of the origin. Left common carotid artery: No significant stenosis, dissection or occlusion.. Left internal carotid artery: Severe soft and calcific plaque noted in the proximal left internal carotid artery causing short-segment subtotal occlusion (greater than 99%). The left carotid bulb is medialized, retropharyngeal there Left external carotid artery: No occlusion or stenosis of the origin. Right vertebral artery: No stenosis. No dissection or occlusion. Left vertebral artery: The left vertebral artery has a direct origin from the transverse arch. Soft tissues: Normal. No significant soft tissue swelling. Bones/joints: There is a 4 mm probably degenerative anterior positioning of C4 on C5. Multilevel cervical spondylosis is noted. Pleural spaces: Apical nodular pleural scarring and blebs are noted. CT/CT angio headneck* [id number] IMPRESSION: No acute intracranial large vessel occlusion. IMPRESSION: Atheromatous disease noted in the proximal internal carotid arteries bilaterally. Subtotal short-segment occlusion of the proximal left internal carotid artery. 70% stenosis measured in the proximal right internal carotid artery. REFERENCES: NASCET CRITERIA. The degree of stenosis in the cervical segment of the internal carotid artery is based on NASCET criteria. Normal is no stenosis. Mild is less than 50% stenosis. Moderate is 50-69% stenosis. Severe is 70% to 99% stenosis. Total occlusion is no detectable patent lumen.
[2023-10-28 11:06] LABS: Basophils # 0.1 10^3/uL (0.0-0.1); Basophils % 0.9 %; Eosinophils # 0.2 10^3/uL (0.0-0.8); Eosinophils % 2.4 %; Hematocrit 43.5 % (36-47); Lymphocytes # 3.1 10^3/uL (0.8-4.8); Lymphocytes % 33.6 %; Mean Corpuscular HGB Conc 33.1 g/dL (30-55); Mean Corpuscular Hemoglobin 30.3 pg (27-33); Mean Corpuscular Volume 91.4 fl (85-98); Mean Platelet Volume 9.2 fL (7.4-10.4); Monocytes # 0.7 10^3/uL (0.2-0.9); Monocytes % 7.7 %; Neutrophils # 5.04 10^3/uL (1.8-7.7); Nucleated Red Blood Cells % 0 %; Platelet Count 337 10^3/cmm (157-399); Red Blood Count 4.76 10^6/uL (3.85-5.65); Red Cell Distribution Width 12.2 % (12.1-15.1); White Blood Count 9.15 10^3/uL (3.29-11.43)
[2023-10-28 11:07] LABS: Glucose Point of Care 88 mg/dL (70-110)
[2023-10-28 11:20] LABS: Partial Thromboplastin Time 31.6 SECONDS (23.9-36.7)
[2023-10-28 11:23] LABS: Alanine Aminotransferase 13 U/L (0-33); Albumin Level 4.5 g/dL (3.5-5.2); Alkaline Phosphatase 135 U/L (35-105); Anion Gap 14.3 (5-19); Aspartate Amino Transferase 14 U/L (0-32); Blood Urea Nitrogen 15 mg/dL (6-20); Calcium 10.5 mg/dL (8.5-10.5); Carbon Dioxide 22 mmol/L (22-29); Chloride 105 mmol/L (98-107); Creatinine Clr Calc Pharmacy 75.2234; Globulin 3.3 g/dL (1.3-4.6); Glomerular Filtration Rate 73.9 mL/min (90-130); Glucose 87 mg/dL (65-115); Osmolality Calculated 284 mOsm/kg (285-295); Potassium 4.3 mmol/L (3.5-5.1); Sodium 137 mmol/L (136-145); Total Bilirubin 0.2 mg/dL (0.15-1.2); Total Protein 7.8 g/dL (6.6-8.7)
[2023-10-28] MEDS: iohexol 350 mg/mL 500 mL Btl (per mL) IV (11:23)
[2023-10-28 12:28] LABS: Add Urine Microscopic? NO; Charge for UA Resulting for Rev
[2023-10-28 12:35] LABS: Bilirubin Urine Neg (Negative); Blood Urine Neg (Negative); Glucose Urine UA Norm (Normal); Ketones Urine Negative (Negative); Leukocyte Esterase Urine Negative (Negative); Nitrate Urine Negative (Negative); Protein Urine Neg (Negative); Specific Gravity, Urine 1.005 (1.005-1.030); Urine Appearance Clear (CLEAR); Urine Color Light yellow (Yellow); Urobilinogen Urine Norm (Negative); pH Urine 6 (5-7)
[2023-10-28 12:42] LABS: Amphetamines Screen Urine Negative (Negative); Barbiturates Screen Urine Negative (Negative); Benzodiazepines Screen Urine Negative (Negative); Cocaine Screen Urine Negative (Negative); Opiate Screen Urine Negative (Negative); PCP Screen Urine Negative (Negative); THC Screen Urine Negative (Negative)
--- NOTE | 2023-11-04 08:11 | DCPLANNER ---
MRI Head and Octaviano out patient request sent to centralized Scheduling
== END 2023-10-28 13:53 | disposition home or self-care (01) ==
PROVIDERS: Emergency Provider Family Medicine; PCP Family Medicine
DX: G45.9 Transient cerebral ischemic attack, unspecified (principal); I10 Essential (primary) hypertension; F17.210 Nicotine dependence, cigarettes, uncomplicated
CPT/HCPCS: 36416; 70450; 70496; 70498; 80053; 80306; 81003; 82962; 85025; 85610; 85730; 93005; 99285; Q9967

== ENCOUNTER 2025-02-05 11:00 | Emergency (ER) | payer MEDICARE, MEDICAID, SELFPAY ==
[2025-02-05 11:03] VITALS: BP 172/101; PULSE 76; RESP 18; TEMP 36.9; O2SAT 96; BMI 22.8
--- OUTSIDE RECORDS SUMMARY | 2025-02-05 11:04 | XMS_ITS | Clinical Summary ---
Author Organization [facility] Address [address] Attn: Epic Prelude ADT [place] [address] Care Team Providers Care Linoleum Layer Apprentice Name Role Phone Yuli Shelton MD, Sam Bernard Primary Care Provider +1- [phone] Allergies Active Allergy Reactions Criticality Noted Date Comments Opioids-Methadone And Related Unknown 07/08/2018 Pt has hx of IV drug use and will not be prescribed narcotics from [facility] [address] Penicillins Shortness of Breath/Wheezing High 01/11/2014 Sulfa (Sulfonamide Antibiotics) Hives High 01/11/2014 Sumatriptan Unknown 05/23/2014 Medications lisinopriL (PRINIVIL) 20 mg tabletIndication s:HTN (hypertension), benign Take 1 Tablet (20 mg) by mouth daily. 90 Tablet 3 9 Active OLANZapine (ZyPREXA) 10 mg tabletIndication s:Bipolar disorder, current episode manic without psychotic features, severe (CMS/HCC) Take 1 Tablet (10 mg) by mouth daily at bedtime. 30 Tablet 5 9 Active hydroCHLOROthiaz harvey (MICROZIDE) 12.5 mg capsuleIndicatio ns:HTN (hypertension), benign Take 1 Capsule (12.5 mg) by mouth daily. 90 Capsule 3 9 Active pantoprazole (PROTONIX) 40 mg Tablet, Delayed Release (E.C.)Indication s:Gastroesophage al reflux disease, esophagitis presence not specified Take 1 Tablet (40 mg) by mouth daily. 90 Tablet 3 9 Active albuterol sulfate (ProAir HFA) 90 mcg/Actuation inhaler INHALE 2 PUFFS BY MOUTH EVERY 6 HOURS NEEDED FOR SHORTNESS OF BREATH 8.5 Gram 3 9 Active promethazine (PHENERGAN) 25 mg tabletIndication s:Gastroesophage al reflux disease, esophagitis presence not specified TAKE 1 TABLET BY MOUTH EVERY 6 HOURS NEEDED FOR NAUSEA AND EMESIS. 30 Tablet 5 9 Active albuterol HFA 90 mcg inhaler Take 2 Puffs by inhalation every 6 hours as needed for Shortness of Breath. 8.5 Gram 4 8 Active albuterol sulfate 90 mcg/Actuation inhaler Take 2 Puffs by inhalation every 6 hours as needed for Shortness of Breath. 6.7 Gram 5 8 Active cholecalciferol 1,250 mcg (50,000 unit) Capsule Take 2 Capsules (100,000 Units) by mouth every 7 days. 8 Capsule 3 7 Active benzonatate (TESSALON) 100 mg capsuleIndicatio ns:Cough Take 1 Capsule (100 mg) by mouth 3 times daily Prn cough. 30 Capsule 2 8 Active Active Problems Problem Noted Date Diagnosed Date Methamphetamine abuse 07/02/2018 Overview (10/26/2020): 05/17 IV drug abuse 07/02/2018 Overview (10/26/2020): Hospitalized 05/17, positive for methamphetamine Simple chronic bronchitis 12/23/2017 Cigarette dependence 03/24/2015 Cervical stenosis of spine 06/01/2014 Vitamin D deficiency 06/01/2014 History of migraine 06/01/2014 HTN (hypertension), benign 05/23/2014 Bipolar affective disorder 05/23/2014 Agoraphobia 05/23/2014 DDD (degenerative disc disease), cervical 2013 KESHA (generalized anxiety disorder) 05/23/2014 OCD (obsessive compulsive disorder) 05/23/2014 GERD (gastroesophageal reflux disease) 4 Resolved Problems Problem Noted Date Diagnosed Date Resolved Date Bipolar affective disorder 06/01/2014 1 08/02/2013 Immunizations Immunization Administration Dates Next Due (PNEUMOVAX 23)(50 YRS UP) PN EUMOCOCCAL POLYSACCHARIDE (PPV23) 0.5 ML, IM 06/18/2018 INFLUENZA VACCINE QUADRIVALENT 3 YR UP PF IM ,06/18/2018 Influenza Vaccine High Dose 65+ Yrs IM 5 Family History Medical History Relation Name Comments Stroke Father Stroke Maternal Grandmother Stroke Mother Stroke Paternal Grandmother Relation Name Status Comments Father Maternal Grandmother Mother Alive Paternal Grandmother Social History Tobacco Use Types Packs/Day Years Used Date Smoking Tobacco: Every Day Smokeless Tobacco: Never Alcohol Use Standard Drinks/Week Comments Not Asked 0 (1 standard drink = 0.6 oz pur e alcohol) Comments Unknown Sex and Gender Information Value Date Recorded Sex Assigned at Not on file 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 Gender Identity Not on file Sexual Orientation Not on file Last Filed Vital Signs Vital Sign Reading Time Taken Comments Blood Pressure 158/111 09/16/2018 2:53 PM CDT Pulse 87 09/16/2018 2:46 PM CDT Temperature 36.3 C (97.3 F) 09/16/2018 2:46 PM CDT Respiratory Rate 16 09/16/2018 2:46 PM CDT Oxygen Saturation - - Inhaled Oxygen Concentration - - Weight 58 kg (127 lb 14.4 oz) 09/16/2018 2:46 PM CDT Height 165.1 cm (5' 5 ) 09/16/2018 2:46 PM CDT Body Mass Index 21.28 09/16/2018 2:46 PM CDT Plan of Treatment Health Maintenance Due Date Last Done Comments DTAP/TDAP/TD VACCINES (1 - Tdap) 1984 HEPATITIS B VACCINES (1 of 3 - 19+ 3-dose series) 1984 HPV/Cotest (21-29) 1986 CERVICAL CANCER SCREENING 12/16/1995 HPV/Cotest (30-65) 12/16/1995 PAP SMEAR 12/16/1995 BREAST CANCER SCREENING 2005 COLORECTAL SCREENING 2010 Colorectal Cancer Screening 2010 FIT-DNA Q 3 years 2010 FIT/FOBT Q 1 year 2010 Flex Sig/CT Colonography Q 5 years 2010 ZOSTER VACCINE (1 of 2) 12/16/2015 INFLUENZA VACCINE (#1) 2025 8, 06/18/2018, 05/29/2015 Care Teams Linoleum Layer Apprentice Relationship Specialty Start Date End Date Sam Roldan Jr., MD [address] [place] [address] [address] [place] [address] PCP - General Family Practice 05/06/14
--- OUTSIDE RECORDS SUMMARY | 2025-02-05 11:04 | XMS_ITS | Encounter Summary ---
Author Organization [facility] Address [address] [place] [address] Care Team Providers Care Trimmer Climber Name Role Phone Yuli Shelton MD, Sam Bernard Primary Care Provider +1- [phone] Encounter Details Date Type Department Care Team (Latest Contact Info) Description 08/28/2000 Outpatient [facility] Ear, Nose and Throat 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
--- OUTSIDE RECORDS SUMMARY | 2025-02-05 11:04 | XMS_ITS | Encounter Summary ---
Author Organization [facility] Address [address] Attn: [place] [address] Care Team Providers Care Skimmer Reverberatory Name Role Phone Yuli Shelton MD, Sam Bernard Primary Care Provider +1- [phone] Encounter Details Date Type Department Care Team (Late st Contact Info) Description 08/12/2000 Outpatient [facility] Bryan Corrie [address], [place] [id number] Social History Tobacco Use Types Packs/Day Years Used Date Smoking Tobacco: Never Assessed Comments Unknown Sex and Gender Information Value Date Recorded Sex Assigned at Not on file 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
--- OUTSIDE RECORDS SUMMARY | 2025-02-05 11:04 | XMS_ITS | Encounter Summary ---
Author Organization [facility] Address [address] [place] [address] Care Team Providers Care Illuminating Engineer Name Role Phone Yuli Shelton MD, Sam Bernard Primary Care Provider +1- [phone] Encounter Details Date Type Department Care Team (Latest Contact Info) Description 08/04/2000 Outpatient Historical [facility] Ear, Nose and Throat 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
--- OUTSIDE RECORDS SUMMARY | 2025-02-05 11:04 | XMS_ITS | Clinical Summary ---
Author Organization [facility] [address] [facility] [address] [facility] [address] [place] [address] Care Team Providers Care Radiation Safety Officer Name Role Phone Yuli Shelton MD, Sam Bernard Primary Care Provider +1- [phone] Allergies Active Allergy Reactions Criticality Noted Date Comments Opioids-Methadone And Related Unknown 07/08/2018 Pt has hx of IV drug use and will not be prescribed narcotics from [facility]. Penicillins Shortness of Breath/Wheezing High 01/11/2014 Sulfa (Sulfonamide Antibiotics) Hives High 01/11/2014 Sumatriptan Unknown 05/23/2014 Medications cholecalciferol 50,000 unit Capsule Take 2 Capsules (100,000 Units) by mouth every 7 days. 8 Capsule 3 7 Active albuterol HFA 90 mcg inhaler Take 2 Puffs by inhalation every 6 hours as needed for Shortness of Breath. 6.7 Gram 5 8 Active benzonatate (TESSALON PERLES) 100 mg capsuleIndicatio ns:Cough Take 1 Capsule (100 mg) by mouth 3 times daily Prn cough. 30 Capsule 2 8 Active albuterol HFA 90 mcg inhaler Take 2 Puffs by inhalation every 6 hours as needed for Shortness of Breath. 8.5 Gram 4 8 Active lisinopril (PRINIVIL) 20 mg tabletIndication s:HTN (hypertension), benign Take 1 Tablet (20 mg) by mouth daily. 90 Tablet 3 9 Active OLANZapine (ZyPREXA) 10 mg tabletIndication s:Bipolar disorder, current episode manic without psychotic features, severe (CMS/HCC) Take 1 Tablet (10 mg) by mouth daily at bedtime. 30 Tablet 5 9 Active promethazine (PHENERGAN) 25 mg tabletIndication s:Gastroesophage al reflux disease, esophagitis presence not specified TAKE 1 TABLET BY MOUTH EVERY 6 HOURS NEEDED FOR NAUSEA AND EMESIS. 30 Tablet 5 9 Active pantoprazole (PROTONIX) 40 mg Tablet, Delayed Release (E.C.)Indication s:Gastroesophage al reflux disease, esophagitis presence not specified Take 1 Tablet (40 mg) by mouth daily. 90 Tablet 3 9 Active hydroCHLOROthiaz harvey (MICROZIDE) 12.5 mg capsuleIndicatio ns:HTN (hypertension), benign Take 1 Capsule (12.5 mg) by mouth daily. 90 Capsule 3 9 Active PROAIR HFA 90 mcg/actuation inhaler INHALE 2 PUFFS BY MOUTH EVERY 6 HOURS NEEDED FOR SHORTNESS OF BREATH 8.5 Gram 3 9 Active Active Problems Patient Care Coordination No te Formatting of this note migh t be different from the original. CII Medication Agreement/ Dr. Roldan on 11/25/14 Problem Noted Date Diagnosed Date IV drug abuse 07/02/2018 Overview (07/02/2018): Hospitalized 05/17, positive for methamphetamine Methamphetamine abuse 07/02/2018 Overview (07/02/2018): 05/17 Simple chronic bronchitis 12/23/2017 Cigarette dependence 03/24/2015 Cervical stenosis of spine 06/01/2014 Vitamin D deficiency 06/01/2014 History of migraine 06/01/2014 HTN (hypertension), benign 05/23/2014 Bipolar affective disorder 05/23/2014 KESHA (generalized anxiety disorder) 05/23/2014 Agoraphobia 05/23/2014 DDD (degenerative disc disease), cervical 2013 OCD (obsessive compulsive disorder) 05/23/2014 GERD (gastroesophageal [...] Years Used Date Smoking Tobacco: Every Day E-Cigarette/M ist Inhalation Device Smokeless Tobacco: Never Tobacco Cessation:Ready to Q uit: No; Counseling Given: Yes Alcohol Use Standard Drinks/Week Comments Not Asked 0 (1 standard drink = 0.6 oz pur e alcohol) Comments No Sex and Gender Information Value Date Recorded Sex Assigned at Not on file 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 Gender Identity Not on file Sexual Orientation Not on file Occupation Industry Job Start Date Job End Date Not on file Not on file Not on file Not on file Last Filed Vital Signs Vital Sign Reading Time Taken Comments Blood Pressure 158/111 09/16/2018 2:53 PM CDT Pulse 87 09/16/2018 2:46 PM CDT Temperature 36.3 C (97.3 F) 09/16/2018 2:46 PM CDT Respiratory Rate 16 09/16/2018 2:46 PM CDT Oxygen Saturation 99% 09/16/2018 2:46 PM CDT Inhaled Oxygen Concentration - - Weight 58 kg (127 lb 14.4 oz) 09/16/2018 2:46 PM CDT Height 165.1 cm (5' 5 ) 09/16/2018 2:46 PM CDT Body Mass Index 21.28 09/16/2018 2:46 PM CDT Plan of Treatment Health Maintenance Due Date Last Done Comments FIT/ DNA Q 3 YEARS (AUTO ORDER) 12/16/1983 FIT/FOBT Q 1 YEAR (AUTO ORDER) 12/16/1983 FLEX SIG/CT COLONOGRAPHY Q 5 YEARS (AUTO ORDER) 12/16/1983 DTAP/TDAP/TD VACCINES (1 - Tdap) 1984 HEPATITIS B VACCINES (1 of 3 - 19+ 3-dose series) 1984 HPV/Cotest (21-29) 1986 HPV/Cotest (30-65) 12/16/1995 BREAST CANCER SCREENING 2005 COLORECTAL CANCER SCREENING (AUTO ORDER) 2010 COLORECTAL SCREENING 2010 Colorectal Cancer Screening (AUTO ORDER) 2010 Colorectal Cancer Screening 2010 FIT-DNA Q 3 years 2010 FIT/FOBT Q 1 year 2010 Flex Sig/CT Colonography Q 5 years 2010 ZOSTER VACCINE (1 of 2) 12/16/2015 CERVICAL CANCER SCREENING 06/30/2017 PAP SMEAR 06/30/2017 06/30/2014 [place] Prev entative Visit/Annual Wellness Visit 06/30/2024 INFLUENZA VACCINE (#1) 2025 8, 06/18/2018, 05/29/2015 Insurance [employer] DUAL COMPLETE MCR PPO D-SNP [place] Care Teams Radiation Safety Officer Relationship Specialty Start Date End Date Sam Roldan Jr., MD PCP - General Family Practice 05/06/14
--- OUTSIDE RECORDS SUMMARY | 2025-02-05 11:04 | XMS_ITS | Patient Health Record ---
Author Organization [facility] Address [address] [place] [address] Care Team Providers Care Grinding Room Supervisor Name Role Phone Mario Anguiano MD Primary Care Provider Marco Edward Unavailable [phone] Purnima Rios Unavailable [phone] Reason For Referral Reason BLADDER PROLAPSE n ote sent to referring unable to accept. Diagnosis 1 Female bladder prola pse (N81.10) Referring Provider First Name Mario Referring Provider Last Name Silvio Referring Provider Speciality Family Med icine Referred Organization [facility] Referred Provider Purnima Rios Referred Address [address] [place] [address] [address],[place], [place],[address],[place] Referred Provider Specialty Curer Acid Drum and bid clerk Referral Priority Routine Problems Problem Type SNOMED Code ICD Code Onset Dates Problem Status W/U Status Risk Notes Problem Smoker (11769379) Smoker (F17.200) Active confirmed Problem Cystocele (613701202) Cystocele (N81.10) Active confirmed Problem Pre-procedure evaluation check (250892202) Preoperative testing (Z01.818) Active confirmed Problem Midline cystocele (302665354) Female bladder prolapse (N81.10) Active confirmed Problem Pelvic and perineal pain (464154928) Acute pelvic pain, female (R10.2) Active confirmed Problem Midline cystocele (287962276) Acquired female bladder prolapse (N81.10) Active confirmed Encounters Encounter Location Date Provider Diagnosis [address] [place] [address] 08/17/2024 Purnima Rios Plan Of Treatment No Information Insurance Providers Payer Name Payer Address Payer Phone Subscriber Number Group Number Insured Name Patient Relationship to Insured Coverage Start Date Coverage End Date [place] [address] [place] [phone] [id number] Christa Rodriguez Self - patient is the insured [facility] [employer] [address] [address] [place] [address] [id number] Christa Rodriguez Self - patient is the insured
--- NOTE | 2025-02-05 11:23 | ED_ITS ---
HPI - Skin/Abscess/Foreign Bdy General: Chief complaint: Skin/Abscess/Foreign Body Stated complaint: small blister/bumps entire skin Time Seen by Provider: 02/05/25 11:16 History of Present Illness: 59-year-old woman who presents emergency room with a rash. She says started when she was [place] the [place] the other day. She is tried multiple home remedies and Benadryl and went as far as using chlorine. She said she went through a whole tube a bit scream. She has raised lesions on her knees and elbows and in her arms. Related Data Previous Rx's ?Medication ?Instructions ?Recorded cyclobenzaprine 10 mg tablet 10 mg PO TID PRN muscle s pasm #20 03/20/21 tabs ibuprofen 800 mg tablet 800 mg PO Q8H 5 days #15 tab s 03/20/21 lisinopril 20 mg tablet 20 mg PO DAILY #30 tabs 03/01 07/20 lisinopril 10 mg tablet 10 mg PO DAILY #30 tabs 06/30 09/20 metoprolol tartrate 25 mg tablet 25 mg PO BID #60 tabs 07/12/23 aspirin 81 mg tablet,delayed 81 mg PO DAILY #30 tabs 0 10/28/23 release atorvastatin 40 mg tablet 40 mg PO DAILY #30 tabs 09/30 clopidogrel 75 mg tablet 75 mg PO DAILY #30 tabs 09/30 hydroxyzine HCl 25 mg tablet 25 mg PO Q8H PRN itching #30 tabs 02/05/25 prednisone 20 mg tablet 60 mg (3 x 20 mg) PO DAILY # 20 tabs 02/05/25 triamcinolone acetonide 0.1 % 1 applic topical TID #30 grams 02/05/25 topical ointment Allergies Allergy/AdvReac Type Severity Reaction Status Date / Time Sulfa (Sulfonamide Allergy ALGY-Hives Verified 10/18/23 09:23 Antibiotics) Review of Systems Narrative: Constitutional symptoms: Negative except as documented in HPI. Skin symptoms: Negative except as documented in HPI. Eye symptoms: Negative except as documented in HPI. ENMT symptoms: Negative except as documented in HPI. Respiratory symptoms: Negative except as documented in HPI. Cardiovascular symptoms: Negative except as documented in HPI. Gastrointestinal symptoms: Negative except as documented in HPI. Genitourinary symptoms: Negative except as documented in HPI. Musculoskeletal symptoms: Negative except as documented in HPI. Neurologic symptoms: Negative except as documented in HPI. Psychiatric symptoms: Negative except as documented in HPI. Endocrine symptoms: Negative except as documented in HPI. [facility] ED PFSH: Medical History (Updated 02/05/25 @ 11:33 by Danielle Charlton MD) Bipolar disorder Hypertension Surgical History History of cholecystectomy History of hysterectomy Social History (Updated 11/03/23 @ 09:48 by Patti Bhat LPN) Smoking and tobacco/nicotine status: current every day tobacco/nicotine user Physical Exam Narrative: EXAM NARRATIVE: General: Alert, no acute distress. Skin: Warm, dry. Patient has lesions which look like either contact dermatitis or some sort of insect bite over her arms and legs. Head: Normocephalic, atraumatic. Neck: Supple, trachea midline. Eye: Extraocular movements are intact. Ears, nose, mouth and throat: mucosa moist. Cardiovascular: Regular, Normal peripheral perfusion. Respiratory: Lungs are clear to auscultation, respirations are non-labored, shila th sounds are equal, Symmetrical chest wall expansion. Gastrointestinal: Soft, Nontender, Non distended Musculoskeletal: Normal ROM, no deformity. Neurological: Alert and oriented, No focal neurological deficit observed. Psychiatric: Cooperative, appropriate mood & affect. Course Vital Signs: Vital signs: Vital Signs Temperature 98.4 F 02/05/25 11:03 Pulse Rate 76 02/05/25 11:03 Respiratory Rate 18 02/05/25 11:03 Blood Pressure 172/101 02/05/25 11:03 Pulse Oximetry 96 02/05/25 11:03 Oxygen Delivery Me thod Room Air 02/05/25 11:03 MDM - Skin/Abscess/Foreign Bdy Medicial Decision Making Assessment and plan: Rash ? IV Solu-Medrol, Pepcid and Benadryl in the emergency room - Discharged home - Discussed plan with patient. Answered any questions. - Evaluation and treatment of this problem were appropriate in the emergency setting. No radiology studies performed this visit Discharge Plan Discharge Patient Disposition: Home Clinical Impression: Contact dermatitis Condition: Stable Prescriptions: New hydroxyzine HCl 25 mg tablet 25 mg PO Q8H PRN (Reason: itching) Qty: 30 0RF prednisone 20 mg tablet 60 mg PO DAILY Qty: 20 0RF Rx Instructions: 3 tabs (60 mg) x 3 days. 2 tabs (40 mg) x 3 days. 1 tab (20 mg) x 3 days. 1/2 tab (10 mg) x 4 days triamcinolone acetonide 0.1 % ointment 1 applic topical TID Qty: 30 0RF No Action cyclobenzaprine 10 mg tablet 10 mg PO TID PRN (Reason: muscle spasm) Qty: 20 0RF ibuprofen 800 mg tablet 800 mg PO Q8H 5 Days Qty: 15 0RF lisinopril 20 mg tablet 20 mg PO DAILY Qty: 30 0RF metoprolol tartrate 25 mg tablet 25 mg PO BID Qty: 60 0RF lisinopril 10 mg tablet 10 mg PO DAILY Qty: 30 0RF aspirin 81 mg tablet,delayed release (DR/EC) 81 mg PO DAILY Qty: 30 0RF clopidogrel 75 mg tablet 75 mg PO DAILY Qty: 30 0RF atorvastatin 40 mg tablet 40 mg PO DAILY Qty: 30 0RF Discharge Orders: Discharge ED (Routine); Ordered 02/05/25 Ordered By: Danielle Charlton Referrals: Mario Anguiano MD [Primary Care Provider, Family Practice] Discharge Diet: Usual diet Discharge Activity: Increase activity as tolerated Patient Instructions: Contact Dermatitis (ED), Opioid Safety, Pain Management, Patient Portal & Evy Instructions Activity Restrictions/Additional Instructions: Thank you for choosing [facility] for your healthcare needs today. You have been screened and evaluated and felt safe for discharge. Health conditions do change or evolve sometimes and as such it is important that you follow up with your Primary Doctor to be re checked, 3-5 days is a general good time frame for follow up. You are always welcome to return to the ED for re assessment if your symptoms are worsening or you have new concerns Print Language: Upper Sorbian Coding Level of Care Code ED Embroidery Finisher for Reg Tate
[2025-02-05] MEDS: diphenhydrAMINE 50 mg/mL SDV 1mL IVP (11:25)
[2025-02-05] MEDS: methylPREDNISolone sod succ 125 mg/2 mL INJ IVP (11:28)
== END 2025-02-05 12:17 | disposition home or self-care (01) ==
PROVIDERS: Emergency Provider Emergency Medicine; PCP Family Medicine
DX: L25.9 Unspecified contact dermatitis, unspecified cause (principal); Z79.82 Long term (current) use of aspirin; Z79.02 Long term (current) use of antithrombotics/antiplatelets; Z72.0 Tobacco use; I10 Essential (primary) hypertension
CPT/HCPCS: 96374; 96375; 99284; J1200; J2919; J3490